=== PATIENT | male | born 1965 | race Caucasian/White ===

== ENCOUNTER 2023-09-01 17:52 | Observation (INO) | payer OTHER, MEDICAID, SELFPAY ==
[2023-08-31 14:30] VITALS: BMI 25.9
[2023-09-01] VITALS (19 sets, daily range): BP systolic 99–175; BP diastolic 57–106; PULSE 68–108; RESP 14–20; TEMP 36.2–36.8; O2SAT 90–98; BMI 25.9
[2023-09-01] MEDS: LACTATED RINGERS 1,000 ML 42 ML IV (14:40)
[2023-09-01] MEDS: ACETAMINOPHEN 325 MG TABLET 975 MG PO (14:41)
[2023-09-01] MEDS: GABAPENTIN 600 MG TABLET 900 MG PO (14:41)
--- NOTE | 2023-09-01 14:48 | PM.PREOP ---
Pre-operative Note Interval Note History & Physical reviewed/Exam performed by Physician: Yes Changes to H&P: No
[2023-09-01] MEDS: CEFAZOLIN 2 GM/100 ML PREMIX 100 ML IV (15:07)
--- NOTE | 2023-09-01 15:22 | SUR.OPER ---
Supine on padded OR bed, head on pillow, arms padded and tucked at sides, legs uncrossed, safety belt at thigh, tape over blanket over lower legs .
[2023-09-01] MEDS: BUPIVACAINE 0.25% (PF) VIAL 30 ML INJ (15:28)
[2023-09-01] MEDS: LORazepam 2 MG/ML INJ 0.5 MG IV ×2 (16:45→16:52)
--- NOTE | 2023-09-01 16:47 | P.OP_ITS ---
Operative Date/Time/Diagnoses Date of procedure: 09/01/23 Time of procedure: 16:48 Pre-op diagnosis: Incarcerated left inguinal hernia Post-op diagnosis: same Procedure & Clinicians Procedure: Open left inguinal hernia repair Same procedure as scheduled: Yes Indications: 58-year-old man with a painful chronically incarcerated left inguinal hernia without obstructive symptoms Surgeon: Rei Kidd Yes if Unassisted: Yes Anesthesia Type: General Operative Notes Findings: Chronic incarceration reducible under anesthesia Large indirect defect Specimen(s): none sent Estimated Blood Loss (mL): 20 Procedure in detail: The patient was placed supine on the table and bilateral lower extremity c ompression devices were applied. Anesthesia was induced they were intubated with an LMA and received Ancef. A time-out was performed. They were prepped and draped in sterile fashion. The left external inguinal ring and the anterior superior iliac crest were identified and marked. Under anesthesia the hernia was reducible. 1 finger breath above the inguinal ligament the skin was infiltrated with 0.25% bupivacaine. The skin incision was made, the subcutaneous tissues were divided with electrocautery exposing the external oblique aponeurosis which was then opened along the direction of its fibers. Using blunt dissection the internal oblique aporneurosis was from the external oblique upper leaflet. The cord was carefully dissected away from the inguinal canal adjacent to the pubic tubercle. The cord including the vas deferens, testicular bloody supply, ilioguinal and genital nerve were encircled with a Branch drain. No direct floor defect present. The cremasteric fibers surrounding the cord were divided adjacent to the internal ring. The vas deferens and the testicular vessels were preserved and protected. The cord contents were carefully explored. There was a large indirect hernia on the anterior medial aspect of the cord which was skeletonized away from the vas deferens and testicular blood supply. The indirect hernia was skeletonized back to the internal ring and reduced spontaneously into the abdomen. Given the large size of the internal ring a plug of mesh was placed into the ring and secured to the adjacent fascia. A 7x 15 cm lightweight Bard Pro Loop hernia mesh was anchored to the insertion of the rectus muscle at the pubic tubercle such that there was approximately 2 cm of tubercle overlap with Ethibond. The inferior edge of the mesh was secured to the shelving edge of the inguinal ligament using Ethibond. Interrupted 3 0 Vicryl suture was used to anchor the superior aspect of the mesh to the conjoined tendon in several places. The tails were then reapproximated loosely around the spermatic cord. The tails of the mesh were then tucked under the external oblique aponeurosis. The repair was checked for hemostasis. The wound was irrigated with sterile saline. The external oblique aponeurosis was reapproximated in a running fashion using 3 0 Vicryl. The subcutaneous tissues were reapproximated with 3 0 Vicryl skin closed with 4 0 Monocryl followed by the application of Dermabond. At the end of the operation I ensured that both testicles were within the scrotum. The sponge instrument count at the end operation was correct. The patient emerged from anesthesia was extubated and transferred to the postoperative care unit in stable condition. A total of 30 ml of of 0.25% bupivicaine was used to infiltrate the skin. Complications: none Post-operative Condition: stable Disposition: observation
[2023-09-01] MEDS: OXYCODONE IR 5 MG TABLET PO ×3 (16:50→22:08)
[2023-09-01] MEDS: ONDANSETRON 4 MG/2 ML INJ IV (16:55)
[2023-09-01] MEDS: hydrOXYzine 50 MG/ML INJ 25 MG IM (16:55)
--- NOTE | 2023-09-01 18:46 | PC.NURSE ---
Rec'd pt from PACU awake and alert, anxious but follows directions and answers questions; left groin incision well approximated w/ skin glue; 0 drainage noted; oriented to room and admission assessment completed; pt tolerating PO intake, although he does c/o mild nausea; he was given zofran and vistaril in PACU; pt has PTSD
[2023-09-01] MEDS: LACTATED RINGERS 1,000 ML 120 ML IV (19:07)
[2023-09-01] MEDS: ACETAMINOPHEN 325 MG TABLET 650 MG PO (22:08)
[2023-09-02] VITALS: BP 141/86; PULSE 106; RESP 18; TEMP 37.1; O2SAT 96; O2SAT 98
[2023-09-02] MEDS: QUETIAPINE 25 MG TABLET 100 MG PO (00:35)
[2023-09-02] MEDS: OXYCODONE IR 5 MG TABLET PO ×4 (02:19→12:49)
[2023-09-02] MEDS: IBUPROFEN 600 MG TABLET PO ×2 (02:20→10:28)
[2023-09-02 04:00] VITALS: O2SAT 93
[2023-09-02] MEDS: ACETAMINOPHEN 325 MG TABLET 650 MG PO ×2 (05:34→12:49)
[2023-09-02 08:00] VITALS: BP 136/86; PULSE 85; RESP 20; O2SAT 96
[2023-09-02 08:29] VITALS: BP 136/86; PULSE 85
[2023-09-02] MEDS: GABAPENTIN 300 MG CAPSULE 900 MG PO (08:29)
[2023-09-02] MEDS: LOSARTAN 50 MG TABLET 100 MG PO (08:29)
--- NOTE | 2023-09-02 09:26 | PC.NURSE ---
Addendum entered by Nazanin Munoz R.N. 09/02/23 14:28: Pt agreeable to discharge plan. Requests medication for assistance with voiding. Provider notified. New orders received. Pt education provided to pt by this RN on discharge, follow up appointment, medications to bead picker from pharmacy. Pt able to void several more times (see I&Os). No IV access or telemetry. Pt dressed, tolerated lunch, pain medication provided per order (see MAR). Pt declined wheelchair at discharge, educated pt on the safety of using the wheelchair to discharge, pt continues to decline. Pt accompanied by PCT to transportation vehicle at approximately 1410. Original Note: Day shift: Pt A&Ox4, discussing prostate frequently, pain 02/06, medicated per orders (See MAR). Pt c/o pressure on prostate, states he has issues with his prostate but isn't taking any medication currently. Bladder scan display 950mL. Abdomen distended, tender. Pt states he will not accept a straight catheter even with numbing gel. This RN explained the risks of inability to void. Pt continues to decline catheter. Dr. Gonzalez notified. Pt able to void one unmeasured, post void residual 320mL. Lower abdomen soft, non-tender. Hat replaced in toilet for accuracy of measurement. Dr. Gonzalez notified. Pt expresses comfort. Call light within reach, pt able to make needs known. Care management at bedside. Care ongoing.
[2023-09-02 12:00] VITALS: O2SAT 95
[2023-09-02 12:35] VITALS: BP 160/86; PULSE 84; RESP 16; TEMP 36.8; O2SAT 98
--- NOTE | 2023-09-02 13:53 | CM.DANOTE ---
Initial DCP Assessment Note Pt is a 58 yo male, resident of [place], POD1 from hernia repair, discharged home today PCP: Jarek Adames Payer: [facility] Reviewed chart, social media coordinator order received requesting assist with arranging transport for patient. Met w/patient, introduced self and role. Patient lives alone in his apt in [place] Patient does not drive. Patient requests contact with [facility] transport to coordinate his ride home. Patient denies addtl. needs from this [employer]IP[employer] MACHINE, says he is indp at baseline and has stocked his fridge with easy to prepare items for the week. Placed call to [facility] contracted [employer], [employer] arranged for leaf size picker at 1400. Patient, provider, RN updated and all agreeable to plan. No barriers identified at this time to patient's safe discharge home ; close outpatient f/u recommended. [facility] transport home. FELI Hill Discharge Planning/Care Management CM Discharge Assessment Start: 09/02/23 13:51 Freq: Status: Active Protocol: Document 09/02/23 13:52 FARSHAD (Rec: 09/02/23 13:53 FARSHAD [id number]) Discharge Planning Assessment Assigned Guitar Maker FELI Allen DPOA/Assigned Designee Name High school friend Miquel Brush , no DPOA Advance Directives? No History Provided By Patient Prior Living Arrangements Apartment/Condo Household Members none Type of transporation used prior to Relies on Others admit Independent with ADL's Yes Is patient alert and oriented? Yes Barriers to Discharge No Discharge Plan Home Transportation Arrangement [facility] Transport Referrals Initiated Other Additional Comment [facility] Transport through [employer] arranged
== END 2023-09-02 14:10 | disposition home or self-care (01) ==
LOC: AC 09-02 09:40
PROVIDERS: Admitting Provider Surgery; PCP Family Medicine; Referring Provider Surgery; Visit Provider Surgery
PROC: (CPT 49507; principal; 2023-09-01 15:00)
DX: K40.30 Unilateral inguinal hernia, with obstruction, without gangrene, not specified as recurrent (principal); I10 Essential (primary) hypertension
CPT/HCPCS: 49507; 96372; 96374; 96375; G0378; J0690; J1100; J1170; J1885; J2060; J2250; J2405; J2704; J3010; J3410

== ENCOUNTER → 2023-11-09 10:15 | Outpatient (CLI) | payer OTHER, MEDICAID, SELFPAY ==
[2023-09-01 17:55] VITALS: BMI 25.9
[2023-11-09 11:07] LABS: Add Manual Diff / Slide Review NO; Basophils Absolute Auto 100 /uL (0-100); Basophils Percent Auto 1.3 % (0-2); Eosinophils Absolute Auto 500 /uL (0-450); Eosinophils Percent Auto 7.7 % (2-4); Hematocrit 40.8 % (41-53); Hemoglobin 13.8 g/dL (13.5-17.5); Lymphocytes Absolute Auto 1700 /uL (1100-4500); Lymphocytes Percent Auto 25.6 % (25-40); Mean Corpuscular HGB Conc 33.7 % (30-36); Mean Corpuscular Hemoglobin 30.8 PG (26-34); Mean Corpuscular Volume 91.5 fL (80-100); Monocytes Absolute Auto 700 /uL (0-900); Monocytes Percent Auto 10.5 % (3-14); Neutrophils Absolute Auto 3700 /uL (1500-7000); Neutrophils Percent Auto 54.9 % (50-75); Platelet Count 345 X10^3/uL (150-400); Red Blood Cell Count 4.46 X10^6/uL (4.5-5.9); Red Cell Distribution Width 14.3 % (11.6-14.8); White Blood Cell Count 6.7 X10^3/uL (4.5-11.0)
[2023-11-09 11:33] LABS: Creatinine Urine Random 103.2 mg/dL
[2023-11-09 11:36] LABS: Microalbumi Creatinin Ratio Ur 7.7 ug/mg CR (<30); Microalbumin Urine Random 0.8 mg/dL (0-1.6)
[2023-11-09 12:23] LABS: HIV 1 & 2 Ab/Ag 4th Gen Combo NEGATIVE (NEGATIVE); Hep C Virus Ab w/Reflex Quant NEGATIVE s/c (NEGATIVE)
[2023-11-09 16:04] LABS: Alanine Aminotransferase 26 IU/L (<50); Albumin Globulin Ratio 1.3 (1.0-2.8); Alkaline Phosphatase 69 U/L (38-126); Aspartate Aminotransferase 30 IU/L (17-59); BUN Creatinine Ratio 14.3 (6-22); Bilirubin Total 0.4 mg/dL (0.2-1.3); Blood Urea Nitrogen 13 mg/dL (9-20); Calcium 9.2 mg/dL (8.4-10.2); Carbon Dioxide 27 mmol/L (22-32); Chloride 108 mmol/L (98-107); Cholesterol 192 mg/dL (140-199); Estimated Glomerular Filt Rate > 60 mL/min (>60); Globulin 3.1 g/dL (1.7-4.1); Glucose 108 mg/dL (80-110); HDL Cholesterol 44 mg/dL (40-60); HEMOLYSIS < 15 (0-50); LDL Cholesterol Calculated 105 mg/dL (<100); Potassium 4.2 mmol/L (3.4-5.1); Sodium 138 mmol/L (137-145); Total Protein 7.1 g/dL (6.3-8.2); Triglycerides 216 mg/dL (35-150)
[2023-11-10 17:17] LABS: Arsenic < 1 ug/L (0-9); Lead, Blood < 1.0 ug/dL (0.0-3.4); Mercury, Blood < 1.0 ug/L (0.0-14.9)
== END ==
PROVIDERS: PCP Family Medicine; Referring Provider Family Medicine; Visit Provider Family Medicine
DX: Z11.4 Encounter for screening for human immunodeficiency virus [HIV] (principal); Z11.59 Encounter for screening for other viral diseases; Z12.5 Encounter for screening for malignant neoplasm of prostate; I10 Essential (primary) hypertension; E78.2 Mixed hyperlipidemia; F39 Unspecified mood [affective] disorder; T75.89XA Other specified effects of external causes, initial encounter
CPT/HCPCS: 36415; 80053; 80061; 82043; 82175; 82570; 83655; 83825; 85025; 86803; 87389; G0103

== ENCOUNTER → 2024-05-10 10:54 | Outpatient (CLI) | payer OTHER, MEDICAID, SELFPAY ==
[2023-09-01 17:55] VITALS: BMI 25.9
[2024-05-10 11:22] LABS: Add Manual Diff / Slide Review NO; Basophils Absolute Auto 100 /uL (0-100); Basophils Percent Auto 1.3 % (0-2); Eosinophils Absolute Auto 500 /uL (0-450); Eosinophils Percent Auto 6.9 % (2-4); Hematocrit 42.9 % (41-53); Hemoglobin 14.7 g/dL (13.5-17.5); Lymphocytes Absolute Auto 1700 /uL (1100-4500); Lymphocytes Percent Auto 26.1 % (25-40); Mean Corpuscular HGB Conc 34.2 % (30-36); Mean Corpuscular Hemoglobin 31.8 PG (26-34); Mean Corpuscular Volume 93.2 fL (80-100); Monocytes Absolute Auto 900 /uL (0-900); Monocytes Percent Auto 13.3 % (3-14); Neutrophils Absolute Auto 3500 /uL (1500-7000); Neutrophils Percent Auto 52.4 % (50-75); Platelet Count 304 X10^3/uL (150-400); Red Cell Distribution Width 14.2 % (11.6-14.8); White Blood Cell Count 6.6 X10^3/uL (4.5-11.0)
[2024-05-10 13:13] LABS: Appearance Urine UA CLEAR; Bilirubin Urine UA NEGATIVE (NEGATIVE); Color Urine UA YELLOW; Glucose Urine UA NEGATIVE (Negative); Ketones Urine UA NEGATIVE (NEGATIVE); Leukocyte Esterase Urine UA NEGATIVE (NEGATIVE); Nitrite Urine UA NEGATIVE (Negative); Occult Blood Urine UA NEGATIVE (Negative); Protein Urine UA NEGATIVE (Negative); Urobilinogen Urine UA 0.2 E.U./dL (0.2)
[2024-05-10 13:36] LABS: Bacteria Urine Occasional (0-1); Culture Indicated Urine Cult Not Indicated; RBC Urine 0-1/HPF (0-5/HPF); Squamous Epithelial Cell Urine 0-1 /HPF (0-5/HPF); Urine Volume 10mL (spun); WBC Urine 0-1/HPF (0-5/HPF)
[2024-05-10 17:29] LABS: Prostate Specific Antigen Scrn 16.5 ng/mL (0.1-4.0)
== END ==
PROVIDERS: PCP Family Medicine; Referring Provider Family Medicine; Visit Provider Family Medicine
DX: E78.2 Mixed hyperlipidemia (principal); Z12.5 Encounter for screening for malignant neoplasm of prostate; I10 Essential (primary) hypertension
CPT/HCPCS: 36415; 81001; 85025; 87086; G0103

== ENCOUNTER → 2024-05-16 10:58 | Outpatient (CLI) | payer OTHER, MEDICAID, SELFPAY ==
[2023-09-01 17:55] VITALS: BMI 25.9
--- NOTE | 2024-05-16 10:59 | DI.US.S_ITS ---
PROCEDURE: US SCROTUM INDICATIONS: RIGHT TESTICLE PAIN/LEFT INGUINAL PAIN POST HERNIA REPAIR 4 MONTHS AGO. LEFT PERITONEAL/LEFT GLUTE MED/INF PALPABLE LUMP. TECHNIQUE: Real-time scanning was performed of the scrotum and testicles, with image documentation. Color and pulse Doppler interrogation was performed of both testicles. COMPARISON: None. FINDINGS: Right: Testicle is normal in size at 4.5 x 3.5 x 2.6 cm, and homogenous in echotexture, although along the lateral aspect of there is tubular ectasia of the rete testes. There are several simple appearing epididymal cysts in the head and body, the largest measuring 5.7 x 4.6 x 2.4 cm. No solid components. No hydrocele or varicocele. Overlying scrotal skin is normal thickness. Left: Testicle is normal in size at 3.7 x 2.0 x 2.6 cm, and predominantly homogeneous in echotexture. In the superior pole, there is a small cluster of punctate calcifications without underlying mass or abnormal vascular flow. There is slight tubular ectasia every testes, though less extensive compared to the contralateral side. The epididymis is normal in size and vascularity. A few small epididymal head cysts are present, largest measuring up to 8 mm. No hydrocele or varicoceles. Overlying scrotal skin is normal in thickness. Doppler: Color and pulse Doppler demonstrate normal and symmetric arterial flow in both testicles. No left inguinal hernia. No abnormalities in the perineal area of palpable nodularity. IMPRESSION: Tubular ectasia of the rete testes and several epididymal head cysts on the right measuring up to 5.7 cm in greatest diameter. No sonographic abnormalities in the area of concern. No recurrent left inguinal hernia seen by ultrasound. Dictated by: Coty Hussein M.D. on 05/16/2024 at 15:29 Approved by: Coty Hussein M.D. on 05/16/2024 at 15:53
== END ==
PROVIDERS: PCP Family Medicine; Referring Provider Family Medicine; Visit Provider Family Medicine
DX: N50.89 Other specified disorders of the male genital organs (principal); N50.811 Right testicular pain; N50.3 Cyst of epididymis; R10.32 Left lower quadrant pain
CPT/HCPCS: 76870; 93975

== ENCOUNTER 2024-06-17 10:43 | Day surgery (SDC) | payer OTHER, MEDICAID, SELFPAY ==
[2023-09-01 17:55] VITALS: BMI 25.9
[2024-06-13 08:06] VITALS: BMI 28.8
[2024-06-17] VITALS (9 sets, daily range): BP systolic 129–166; BP diastolic 78–111; PULSE 92–107; RESP 14–20; TEMP 36.4–36.9; O2SAT 93–99; BMI 28.8
[2024-06-17] MEDS: LACTATED RINGERS 1,000 ML 42 ML IV (11:59)
--- NOTE | 2024-06-17 13:04 | PM.PREOP ---
Pre-operative Note COVID-19 COVID-19 status: Not tested Interval Note History & Physical reviewed/Exam performed by Physician: Yes Changes to H&P: No
[2024-06-17] MEDS: CEFAZOLIN 2 GM/100 ML PREMIX 100 ML IV (13:27)
--- NOTE | 2024-06-17 14:09 | SUR.OPER ---
Lateral on a padded or bed, head on pillow, bottom leg bent with gel pad under knee to foot, upper leg straight and supported with pillows. Upper arm supported by pillows and secured over bottom arm to padded arm board. Safety belt at hip, tape over blanket lower legs.
--- NOTE | 2024-06-17 14:10 | SUR.OPER ---
Supine on padded OR bed, head on pillow, arms secured on padded arm boards at <90 degrees abduction, legs uncrossed, safety belt at thigh, tape over blanket over lower legs.
[2024-06-17] MEDS: LIDOCAINE 1% 20 ML, EPINEPHrine 0.2 MG INJ (14:17)
[2024-06-17] MEDS: BUPIVACAINE 0.25% (PF) 30 ML, EPINEPHrine 0.15 MG INJ (14:19)
[2024-06-17] MEDS: BACITRACIN 28 GM OINT 1 APPLIC TOP (15:03)
--- NOTE | 2024-06-17 15:13 | PM.OP.1 ---
Procedure & Clinicians Procedure: Transrectal ultrasound guided prostate biopsy Right spermatocelectomy Same procedure as scheduled: Yes Indications: 59 y/o M w/ a questionable FH of prostate cancer noted to have an elevated PSA of 16.5 in Apr, up slightly from 14 in October of 2023. He was also noted to have an ~6cm right epididymal head cyst that is very tender to palpation and would prefer to have both issues managed under the same anesthetic. Surgeon: Berto Smith Click Yes if Unassisted: Yes Anesthesia Type: General Operative Notes Findings: Unremarkable TRUS prostate, large right spermatocele Closure Type: primary Specimen(s): other (Prostate biopsies) Estimated Blood Loss (mL): 10 Blood products transfused: none Procedure in detail: Transrectal Ultrasound of the Prostate with Needle Biopsy: [id number] Indication: 59 y/o M a/ an elevated PSA and a questionable FH of prostate cancer. Following informed consent, he was transitioned into the left lateral decubitus position. The ultrasound probe was then coated in lubrication and gently inserted into his rectum. A total of 10cc of 1% Lidocaine was used for local anesthetic throughout the procedure. Transrectal US images of his prostate were then performed and a volume of 41 cc was calculated. A total of 12 biopsies were taken from the prostate and submitted as six different pathologic specimens (right base, right mid, right apex, left base, left mid, left apex). Hemostasis was evaluated at the end of the procedure and noted to be excellent. He tolerated the procedure well without any complications and the ultrasound probe was gently removed from his rectum. He was then repositioned into the supine position on the operating room table where general anesthesia was induced. All bony prominences were then properly padded and he was prepped and draped in the standard sterile fashion. A surgical timeout was conducted and all members of the operating team were in agreement. A 4cm transverse incision was marked on the right hemiscrotum using a marking pen. This was then incised using a 15 blade. The dissection was then carried down through the subcutaneous tissue and dartos fascia using bovie electrocautery. The testicle was then delivered onto the operative field through the incision. The tunica vaginalis was then incised using Bovie electrocautery and attention was turned to the large right spermatocele. This was dissected free from the surrounding epididymis and tunica vaginalis and the stalk from which it arised was isolated. This was ligated using 3-0 silk ties. The spermatocele sac was then excised. Throughout the entire procedure, care was taken to avoid the right testicle and spermatic cord, which were both preserved at case end. The tunica vaginalis overlying the right epididymis was then closed using 3-0 Vicryl in a running fashion. The scrotum was then inspected for hemostasis, which was noted to be excellent. A lovely drain was then brought out the inferior most portion of his right hemiscrotum and secured to the skin using a 3-0 Nylon stitch. The right testicle was placed back into the right hemiscrotum in correct anatomic position and without twisting of the spermatic cord. The incision was then closed in two separate layers. Dartos was reapproximated using 3-0 Vicryl in a running fashion. The skin edges were then reapproximated using 3-0 Chromic in a running baseball stitch fashion. Bacitracin was then applied to the incision. A total of 20cc of 1:1 mixture of 1% Lidocaine plain and 0.5% Marcaine plain was used for incision and cord block anesthetic. Fluff gauze and scrotal support was then placed over the incision. Anesthesia was reversed, he was extubated in the OR and transferred to the PACU in stable condition for recovery. Complications: none Post-operative Condition: stable Disposition: PACU Plan for aftercare: Discharge home from PACU. Will contact with pathology results over the phone. Will have him return to Urology clinic in 6-8 weeks for a wound check.
[2024-06-17] MEDS: fentaNYL 100 MCG/2 ML INJ IV ×2 (15:19→15:24)
[2024-06-17] MEDS: hydrOXYzine 50 MG/ML INJ 25 MG IM (15:25)
[2024-06-17] MEDS: ONDANSETRON 4 MG/2 ML INJ IV ×2 (15:37→16:40)
[2024-06-17] MEDS: OXYCODONE IR 5 MG TABLET PO (15:51)
[2024-06-17] MEDS: ACETAMINOPHEN 325 MG TABLET 975 MG PO (15:52)
== END 2024-06-17 17:02 | disposition home or self-care (01) ==
PROVIDERS: PCP Family Medicine; Referring Provider Urology; Visit Provider Urology
PROC: (CPT 54840; principal; 2024-06-17 13:00)
PROC: 0VJ43ZZ Inspection of Prostate and Seminal Vesicles, Percutaneous Approach (ICD-10-PCS; CPT 55876; 2024-06-17 13:00)
DX: N43.40 Spermatocele of epididymis, unspecified (principal); R97.20 Elevated prostate specific antigen [PSA]
CPT/HCPCS: 54840; 55700; 76872; 82962; J0171; J0690; J2250; J2405; J2704; J3010; J3410

== ENCOUNTER → 2024-07-13 10:41 | Outpatient (CLI) | payer OTHER, SELFPAY ==
[2024-07-02 14:59] VITALS: BMI 25.9
--- NOTE | 2024-07-13 10:43 | DI.CT.S_ITS ---
PROCEDURE: CT CHEST ABD PEL W CON INDICATIONS: newly diagnosed high-risk prostate cancer TECHNIQUE: After the administration of intravenous contrast, 5 mm thick sections acquired from the lung apices to the symphysis. 5 mm coronal and sagittal reformats were performed, with additional 7 mm MIP reformats through the lungs. For radiation dose reduction, the following was used: automated exposure control, adjustment of mA and/or kV according to patient size. COMPARISON: None. FINDINGS: Image quality: Diagnostic CHEST: Lower Neck: No enlarged lymph nodes. Thyroid: No thyroid nodules which require sonographic follow up, per consensus guidelines. Axillae: No enlarged lymph nodes. Chest Wall: Unremarkable. Lungs and Pleura: No pneumothorax or pleural effusions. No consolidation or suspicious nodules. Heart: Heart size is normal. No pericardial effusion. Coronary atherosclerotic vascular calcifications are noted. Thoracic Vessels: The aorta is normal size. Enlargement of the main pulmonary artery measuring up to 3.8 cm in diameter. Findings are nonspecific but may represent sequela of chronic pulmonary arterial hypertension. Mediastinum and Yvonne: No enlarged lymph nodes. Esophagus: No wall thickening. No hiatal hernia. ABDOMEN: Liver: No solid mass. Gallbladder: No radiopaque gallstones or wall thickening. Biliary ducts: No biliary dilation. Pancreas: Homogeneous enhancement without focal lesions or pancreatic ductal dilatation. No peripancreatic inflammation or organized fluid collections. Spleen: The spleen is normal in size and appearance. Adrenal Glands: No adrenal nodules. Kidneys and Ureters: No hydronephrosis. No solid mass. No complex renal cystic lesion which requires follow up. Bilateral ureter appears non-dilated throughout its expected course without ureteral stones visualized. Stomach and Bowel: Normal colonic caliber, without significant wall thickening. Scattered colonic diverticula without acute inflammation. No evidence for small bowel obstruction or associated inflammatory changes. Normal appendix. Peritoneum: No abnormal intraperitoneal fluid. No free air. Ventral Wall: No significant ventral hernia. Abdominal Nodes: No retroperitoneal or mesenteric adenopathy by size criteria. Vessels: Aorta and inferior vena cava are normal in size. Atherosclerosis. PELVIS: Pelvic Organs: Prostatomegaly. Coarse prostatic calcifications. Bladder: No bladder wall thickening, accounting for underdistention. Pelvic Nodes: No enlarged lymph nodes. No presacral or pelvic sidewall adenopathy. Miscellaneous: No inguinal hernias are seen. Bones: No aggressive osseous abnormality. No acute vertebral body compression fractures. Multilevel spondylitic changes throughout the imaged spine. No suspicious osseous lesions. IMPRESSION: CT chest, abdomen, and pelvis without acute abnormalities. No evidence for metastatic disease or adenopathy. Chronic/nonacute findings as above. Dictated by: Bradley Arambula M.D. on 07/13/2024 at 16:41 Approved by: Bradley Arambula M.D. on 07/13/2024 at 16:50
[2024-07-13 11:18] LABS: Estimated Glomerular Filt Rate > 60 mL/min (>60)
== END ==
PROVIDERS: Radiology Diagnostic Radiology; PCP Family Medicine; Referring Provider Urology; Visit Provider Urology
DX: C61 Malignant neoplasm of prostate (principal); I25.10 Atherosclerotic heart disease of native coronary artery without angina pectoris; K57.90 Diverticulosis of intestine, part unspecified, without perforation or abscess without bleeding
CPT/HCPCS: 36415; 71260; 74177; 82565; Q9967

== ENCOUNTER → 2024-07-25 08:46 | Outpatient (CLI) | payer OTHER, SELFPAY ==
[2024-07-02 14:59] VITALS: BMI 25.9
--- NOTE | 2024-07-25 08:47 | DI.NM.S_ITS ---
PROCEDURE: NM BONE SCAN WHOLE BODY RADIOPHARMACEUTICAL: 20.6 mCi Tc-99m MDP IV. INDICATIONS: 59 y/o M w/ newly diagnosed high-risk prostate cancer TECHNIQUE: Delayed whole-body scintigrams were obtained approximately 3-4 hours after intravenous injection of radiotracer. Anterior and posterior views were acquired from vertex to feet. Additional left and right oblique views of the pelvis were obtained. COMPARISON: [facility], CT, CT CHEST ABD PEL W CON, 07/13/2024, 11:20. FINDINGS: Periodontal disease can be seen. No additional abnormal uptake of radiotracer is seen within the bones of the calvarium or bones of the face. No abnormal radiotracer uptake is seen within the cervical spine, thoracic spine, or lumbar spine. No abnormal uptake of radiotracer is seen within the sternum. No abnormal rib uptake is seen. A mild degree of symmetric uptake is seen within the region of the shoulders, which is attributed to degenerative change and is not considered to be pathologic. No abnormal uptake is seen within the upper extremities. No abnormal uptake is seen within the pelvis or within the lower extremities. No abnormal soft tissue uptake is seen. The kidneys demonstrate normal positions. IMPRESSION: No suspicious findings of bony metastatic disease can be seen. Dictated by: Kumar Yanez M.D. on 07/25/2024 at 15:02 Approved by: Kumar Yanez M.D. on 07/25/2024 at 15:03
== END ==
PROVIDERS: PCP Family Medicine; Referring Provider Urology; Visit Provider Urology
DX: C61 Malignant neoplasm of prostate (principal)
CPT/HCPCS: 78306; A9503

== ENCOUNTER → 2024-09-17 15:50 | Outpatient (CLI) | payer OTHER, SELFPAY ==
[2024-07-02 14:59] VITALS: BMI 25.9
[2024-09-17 17:12] LABS: Add Manual Diff / Slide Review NO; Basophils Absolute Auto 100 /uL (0-100); Eosinophils Absolute Auto 400 /uL (0-450); Eosinophils Percent Auto 5.9 % (2-4); Hematocrit 43.8 % (41-53); Hemoglobin 14.9 g/dL (13.5-17.5); Lymphocytes Absolute Auto 1100 /uL (1100-4500); Lymphocytes Percent Auto 16.9 % (25-40); Mean Corpuscular Hemoglobin 31.7 PG (26-34); Mean Corpuscular Volume 93.1 fL (80-100); Monocytes Absolute Auto 600 /uL (0-900); Monocytes Percent Auto 10.2 % (3-14); Neutrophils Absolute Auto 4200 /uL (1500-7000); Platelet Count 267 X10^3/uL (150-400); Red Blood Cell Count 4.71 X10^6/uL (4.5-5.9); Red Cell Distribution Width 13.5 % (11.6-14.8); White Blood Cell Count 6.3 X10^3/uL (4.5-11.0)
[2024-09-17 17:27] LABS: Alanine Aminotransferase 44 IU/L (<50); Albumin 4.5 g/dL (3.5-5.0); Albumin Globulin Ratio 1.5 (1.0-2.8); Alkaline Phosphatase 88 U/L (38-126); Aspartate Aminotransferase 45 IU/L (17-59); BUN Creatinine Ratio 13.7 (6-22); Bilirubin Total 0.7 mg/dL (0.2-1.3); Blood Urea Nitrogen 16 mg/dL (9-20); Calcium 9.4 mg/dL (8.4-10.2); Carbon Dioxide 23 mmol/L (22-32); Chloride 104 mmol/L (98-107); Estimated Glomerular Filt Rate > 60 mL/min (>60); Globulin 3.1 g/dL (1.7-4.1); Glucose 114 mg/dL (80-110); HEMOLYSIS < 15 (0-50); Lactate Dehydrogenase 199 U/L (120-246); Potassium 4.6 mmol/L (3.4-5.1); Sodium 135 mmol/L (137-145); Total Protein 7.6 g/dL (6.3-8.2)
[2024-09-17 17:59] LABS: Prostate Specific Antigen 17.5 ng/mL (0.10-4.00)
[2024-09-17 18:01] LABS: Testosterone 345 ng/dL (71.8-623)
[2024-09-17 19:17] LABS: Erythrocyte Sedimentation Rate 4 MM/HR (0-15)
== END ==
LOC: LAB 15:52
PROVIDERS: PCP Family Medicine; Referring Provider Internal Medicine Hematology & Oncology; Visit Provider Internal Medicine Hematology & Oncology
DX: C61 Malignant neoplasm of prostate (principal); R97.20 Elevated prostate specific antigen [PSA]; I10 Essential (primary) hypertension; F90.9 Attention-deficit hyperactivity disorder, unspecified type
CPT/HCPCS: 36415; 80053; 83615; 84153; 84403; 85025; 85651

== ENCOUNTER → 2024-10-01 11:39 | Outpatient (CLI) | payer OTHER, SELFPAY ==
[2024-07-02 14:59] VITALS: BMI 25.9
--- NOTE | 2024-10-01 11:44 | EKG_ITS ---
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
== END ==
LOC: RESP 11:41
PROVIDERS: PCP Family Medicine; Referring Provider Family Medicine; Visit Provider Family Medicine
DX: Z01.810 Encounter for preprocedural cardiovascular examination (principal)
CPT/HCPCS: 93005